=== PATIENT | female | born 1985 | race Caucasian/White ===

== ENCOUNTER 2024-02-16 13:03 | Emergency (ER) | payer OTHER ==
[~2024-02-16] VITALS: Ht 147.3 cm; Wt 62.6 kg
[2024-02-16 13:14] VITALS: BP_SYST 103; PULSE 76; RESP 15; TEMP 97.4; O2SAT 99
[2024-02-16] MEDS ORDERED: IBUP-1969 PO (15:02)
[2024-02-16] MEDS: IBUPROFEN 800 MG TABLET PO ONE (15:02)
[2024-02-16] MEDS ORDERED: DICL20GE TP (15:02)
[2024-02-16 16:00] VITALS: BP_SYST 103; PULSE 76; RESP 15; TEMP 97.4; O2SAT 99
== END 2024-02-16 16:18 | disposition home or self-care (01) ==
LOC: SED 13:03
DX: S20.212A Contusion of left front wall of thorax, initial encounter (principal); S40.012A Contusion of left shoulder, initial encounter; V89.2XXA Person injured in unspecified motor-vehicle accident, traffic, initial encounter; Y93.89 Activity, other specified; Y92.89 Other specified places as the place of occurrence of the external cause; Y99.8 Other external cause status
CPT/HCPCS: 71045; 71100; 73030; 99284